=== PATIENT | female | born 1980 | race Caucasian/White ===

== ENCOUNTER 2023-04-15 08:30 | Outpatient (OUT) | payer BC, SELFPAY ==
--- NOTE | 2023-04-15 08:32 | MM_ITS ---
Patient Name: SHAR SMITH MR#: [id number] : 1980 Exam Date: 04/15/2023 Ordering Doctor: DR Robert Llanos D.O. RADIOLOGY REPORT PROCEDURE: MM TOMOSYNTHESIS SCREENING BI COMPARISON: MG MAMM SCREEN 3D DIRK CAD, 08/18/2020. MG MAMM SCREEN DIRK W CAD, 06/09/2019. INDICATIONS: Screening Calculator Name NCI Breast Cancer Risk Assessment Tool 5 Year Breast Cancer Risk 1.40% Lifetime Breast Cancer Risk 19.10% Personal Breast Cancer No Personal Ovarian Cancer No Treatments None Family Cancers Mother with breast cancer at age 65. LOCATION: [facility] BREAST COMPOSITION: Heterogeneously dense,which may obscure small masses. FINDINGS: DIAGNOSTIC CATEGORY 1--NEGATIVE. NO CHANGE FROM COMPARISON ASSESSMENT. RIGHT BREAST: No significant suspicious finding. LEFT BREAST: No significant suspicious finding. RECOMMENDATIONS: ROUTINE MAMMOGRAM AND CLINICAL EVALUATION IN 12 MONTHS. PLEASE NOTE: A NORMAL MAMMOGRAM DOES NOT EXCLUDE THE POSSIBILITY OF BREAST CANCER. A CLINICALLY SUSPICIOUS PALPABLE LUMP SHOULD BE BIOPSIED. Dictated by: Chano Michel MD on 04/15/2023 at 10:09 Approved by: Chano Michel MD on 04/15/2023 at 10:14
[2023-04-15 09:24] LABS: Basophils Percent Auto 0.7 % (0.2-2.0); Eosinophils Absolute Auto 0.1 10^3/uL (0.0-0.7); Eosinophils Percent Auto 2.2 % (0.9-7.0); Hematocrit 39.2 % (36.0-48.0); Hemoglobin 12.9 g/dL (12.0-16.0); Immature Granulocytes Abs Auto 0.01 10^3/uL (0.00-0.03); Immature Granulocytes Pct Auto 0.2 % (0.0-0.5); Lymphocytes Absolute Auto 2.5 10^3/uL (1.2-3.8); Lymphocytes Percent Auto 43.5 % (20.5-60.0); Mean Corpuscular HGB Conc 32.9 g/dL (29.9-35.2); Mean Corpuscular Hemoglobin 29.3 pg (26.7-34.0); Mean Corpuscular Volume 89.1 fL (81.0-99.0); Mean Platelet Volume 9.2 fL (9.5-13.5); Monocytes Absolute Auto 0.3 10^3/uL (0.3-0.8); Monocytes Percent Auto 5.5 % (1.7-12.0); Neutrophils Absolute Auto 2.8 10^3/uL (1.4-6.5); Neutrophils Percent Auto 47.9 % (43.0-75.0); Platelet Count 320 10^3/uL (150-450); Red Cell Distribution Width 12.4 % (11.0-15.0); White Blood Count 5.8 10^3/uL (4.0-11.0)
[2023-04-15 10:32] LABS: Alanine Aminotransferase 28 U/L (14-59); Albumin Level 3.9 g/dL (3.4-5.0); Alkaline Phosphatase 113 U/L (46-116); Anion Gap 12.2; Aspartate Amino Transferase 17 U/L (15-37); BUN Creatinine Ratio 15.2; Bilirubin Total 0.6 mg/dL (0.2-1.0); Carbon Dioxide 27.4 mmol/L (21.0-32.0); Chloride 104 mmol/L (98-107); Chol HDL Ratio 3.3; Cholesterol 170 mg/dL (<=200); Estimated GFR (African America >60 (>=60); Estimated GFR (Non-African Ame >60 (>=60); Globulin 3.8 g/dL; Glucose 98 mg/dL (74-106); HDL Cholesterol 52 mg/dL (40-60); Potassium 3.6 mmol/L (3.5-5.1); Sodium 140 mmol/L (136-145); Thyroid Stimulating Hormone 4.114 uIU/mL (0.358-3.740); Total Protein 7.7 g/dL (6.4-8.2); Triglycerides 95 mg/dL (<=150)
== END 2023-04-15 08:31 | disposition home or self-care (01) ==
LOC: MAMMO 08:30
PROVIDERS: PCP Internal Medicine; Visit Provider Internal Medicine
DX: Z00.00 Encounter for general adult medical examination without abnormal findings (principal); Z12.31 Encounter for screening mammogram for malignant neoplasm of breast; Z80.3 Family history of malignant neoplasm of breast
CPT/HCPCS: 36415; 77063; 77067; 80053; 80061; 84443; 85025

== ENCOUNTER 2023-12-23 09:55 | Outpatient (OUT) | payer BC, SELFPAY ==
--- OUTSIDE RECORDS SUMMARY | 2023-12-23 10:08 | XMS_ITS | CCD ---
Author Organization [facility] Care Team Providers Care Novelty Maker Name Role Phone KATELYN WORKMAN (INBOUND TELEMARKETER) Unavailable Unavailable Nolan West Unavailable MelodieSim joyce Unavailable RUEL JEWELL Admitting Unavailable RUEL JEWELL Attending Unavailable RUEL JEWELL Primary Care Unavailable VIET, DR CONKLIN Admitting Unavailable VIET, DR CONKLIN Attending Unavailable VIET, DR CONKLIN Primary Care Unavailable VIET, DR CONKLIN Consulting Unavailable VIET, DR CONKLIN Admitting Unavailable VIET, DR CONKLIN Attending Unavailable RUEL JEWELL Primary Care Unavailable VIET, DR CONKLIN Consulting Unavailable QUIQUE, DR NADER Woodard Consulting Unavailable VIET, DR CONKLIN Admitting Unavailable VITE, DR CONKLIN Attending Unavailable VIET, DR CONKLIN Primary Care Unavailable Robert Llanos Unavailable Medications Current Medications Medication Drug Class(es) Dates Sig (Normalized) Sig (Original) 24 hr amphetamine aspartate 5 mg / amphetamine sulfate 5 mg / dextroamphetamine saccharate 5 mg / dextroamphetamine sulfate 5 mg extended release oral capsule (7 sources) Central Nervous System Stimulant Start: 06-12-2022 take 1 capsule by mouth every twenty-four hours Adderall XR 20 MG 1 capsule in the morning Orally Once a day for 30 days Jun, Active azithromycin 250 mg oral tablet (3 sources) Macrolide Antimicrobial Start: 07-27-2022 Azithromycin 250 MG as directed Orally daily for 5 days Jul, Active calcium carbonate 1500 mg oral tablet (19 sources) take 1 tablet by mouth every twelve hours Calcium 600 MG 1 tablet with meals Orally Twice a day Active take 1 tablet by mouth every twe lve hours Calcium 600 MG 1 tablet with meals Orally Twice a day Active clobetasol propionate 0.5 mg /ml topical cream (19 sources) Corticosteroid Clobetasol Propi марина 0.05 % 1 application Externally Twice a day Active Clobetasol Propi марина 0.05 % 1 application Externally Twice a day Active dexmethylphenidate hydrochloride 5 mg oral tablet (7 sources) Central Nervous System Stimulant Start: 06-14-2022 take 1 tablet by mouth every twelve hours Focalin 5 MG 1 tablet Orally Twice a day for 30 days Jun, Active estradiol 0.01 mg vaginal insert (19 sources) Estrogen Vagifem 10 MCG 1 tablet Vaginal Two times a Week Active Vagifem 10 MCG 1 tablet Vaginal Two times a Week Active FLUoxetine 10 mg oral capsule (5 sources) Serotonin Reuptake Inhibitor Start: 03-25-2023 take 1 capsule by mouth every twenty-four hours FLUoxetine HCl 10 MG 1 capsule Orally Once a day for 30 days Mar, Active lisdexamfetamine dimesylate 50 mg oral capsule (20 sources) Central Nervous System Stimulant Start: 04-19-2023 take 1 capsule by mouth every twenty-four hours Lisdexamfetamine Dimesylate 50 MG 1 capsule in the morning Orally Once a day for 30 days Apr, Active Start: 04-16-2023 take 1 capsule by [facility] every twenty-four hours Lisdexamfetamine Dimesylate 50 MG 1 capsule in the morning Orally Once a day for 30 days Apr, Active Start: 10-29-2022 take 1 capsule by [facility] every twenty-four hours Vyvanse 50 MG 1 capsule in the morning Orally Once a day for 30 days Feb, Active Start: 08-17-2022 Vyvanse 40 MG 1 capsure Orally Once a day for 30 days Aug, Active Start: 06-11-2022 Vyvanse 40 MG 1 capsure Orally Once a day for 30 days Jun, Active Ondansetron (7 sources) Serotonin-3 Receptor Antagonist Zofran 4 MG PRN Active phenazopyridine hydrochloride 200 mg oral tablet (19 sources) take 1 tablet by mouth every eight hours Pyridium 200 MG 1 tablet after meals Orally Three times a day Active phentermine hydrochloride 37.5 mg oral tablet (9 sources) Sympathomimetic Amine Anorectic take 1 tablet by mouth once daily Phentermine HCl 37.5 MG TAKE 1 TABLET BY MOUTH DAILY Oral for 30 Days Active promethazine hydrochloride 12.5 mg oral tablet (19 sources) Phenothiazine take 1 tablet by mouth every six hours Promethazine HCl 12.5 MG 1 tablet as needed Orally every 6 hrs Active traMADol hydrochloride 50 mg oral tablet (9 sources) Opioid Agonist take 1 tablet by mouth twice daily traMADol HCl 50 MG TAKE 1 TABLET BY MOUTH TWICE A DAY Oral for 30 Days Active traZODone hydrochloride 50 mg oral tablet (9 sources) Serotonin Reuptake Inhibitor take 0.5 tablet by mouth once daily at bedtime traZODone HCl 50 MG TAKE 1/2 TABLET BY MOUTH EVERY DAY AT BEDTIME Oral for 30 Days Active Problems Active Problems Problem Classification Problem Date Documented Date Episodic/Chronic Abdominal pain (20 sources) Abdominal pain; Translations: [Unspecified abdominal pain] Episodic Acute bronchitis (1 source) Acute bronchitis due to other specified organisms Episodic Adjustment disorders (20 sources) Stress; Translations: [Reaction to severe stress, unspecified] Chronic Administrative/socia l admission (10 sources) Counseling requested; Translations: [Persons encountering health services in other specified circumstances] Resolved: 03-08-2017 Episodic Allergic reactions (5 sources) Inflammatory dermatosis; Translations: [Dermatitis, unspecified] Episodic Anxiety disorders (20 sources) Generalized anxiety disorder; Translations: [Generalized anxiety disorder] Chronic Complications of surgical procedures or medical care (5 sources) Symptomatic postprocedural ovarian failure; Translations: [Symptomatic postprocedural ovarian failure] Chronic Contraceptive and procreative management (5 sources) Surveillance of depot contraception done; Translations: [Encounter for surveillance of injectable contraceptive] Episodic Disorders usually diagnosed in infancy, childhood, or adolescence (20 sources) Attention deficit hyperactivity disorder, predominantly inattentive type; Translations: [Other specified behavioral and emotional disorders with onset usually occurring in childhood and adolescence] Chronic Esophageal disorders (5 sources) Gastroesophageal reflux disease without esophagitis; Translations: [Gastro-esophageal reflux disease without esophagitis] Chronic Immunizations and screening for infectious disease (10 sources) Contact with and (suspected) exposure to other viral communicable diseases; Translations: [Vaccination given] Episodic Malaise and fatigue (5 sources) Fatigue; Translations: [Other fatigue] Episodic Menopausal disorders (20 sources) Vaginal dryness; Translations: [Menopausal and female climacteric states] Chronic Menstrual disorders (20 sources) Dysmenorrhea; Translations: [Dysmenorrhea, unspecified] Chronic Miscellaneous mental health disorders (20 sources) Primary insomnia; Translations: [Primary insomnia] Chronic Mood disorders (11 sources) Depression; Translations: [Recurrent major depressive episodes, mild ] Chronic Nausea and vomiting (19 sources) Nausea; Translations: [Nausea] Episodic Other and unspecified benign neoplasm (1 source) Hemangioma of skin and subcutaneous tissue Episodic Other connective tissue disease (5 sources) Enthesopathy; Translations: [Other enthesopathies, not elsewhere classified] Episodic Other diseases of kidney and ureters (5 sources) Disorder of kidney and/or ureter; Translations: [Other specified disorders of kidney and ureter] Chronic Other ear and sense organ disorders (5 sources) Noise effects on inner ear; Translations: [Noise effects on inner ear, bilateral] Episodic Other female genital disorders (5 sources) Premenstrual tension syndrome; Translations: [Premenstrual tension syndrome] Chronic Other female genital disorders (5 sources) Disorder of female genital system; Translations: [Personal history of other diseases of the female genital tract] Episodic Other nutritional; endocrine; and metabolic disorders (12 sources) Body mass index 30+ - obesity; Translations: [Body mass index (BMI) 30.0-30.9, adult] Chronic Other nutritional; endocrine; and metabolic disorders (12 sources) Obesity; Translations: [Other obesity due to excess calories] Chronic Other nutritional; endocrine; and metabolic disorders (1 source) Other obesity due to excess calories Chronic Other nutritional; endocrine; and metabolic disorders (1 source) Body mass index (BMI) 30.0-30.9, adult Chronic Other nutritional; endocrine; and metabolic disorders (10 sources) Body mass index 25-29 - overweight; Translations: [Body mass index (BMI) 27.0-27.9, adult] Resolved: 04-18-2021 Episodic Other nutritional; endocrine; and metabolic disorders (5 sources) Abnormal weight gain; Translations: [Abnormal weight gain] Episodic Other nutritional; endocrine; and metabolic disorders (5 sources) Overweight; Translations: [Overweight] Episodic Other nutritional; endocrine; and metabolic disorders (5 sources) Other symptoms and signs concerning food and fluid intake; Translations: [Nutritional status: food and fluid intake] Episodic Other nutritional; endocrine; and metabolic disorders (1 source) Overweight Episodic Other screening for suspected conditions (not mental disorders or infectious disease) (1 source) Encounter for screening mammogram for malignant neoplasm of breast Episodic Other skin disorders (1 source) Other seborrheic keratosis Episodic Other skin disorders (5 sources) Generalized hyperhidrosis; Translations: [Generalized hyperhidrosis] Episodic Other skin disorders (5 sources) Hypertrophic condition of skin; Translations: [Other hypertrophic disorders of the skin] Episodic Other skin disorders (5 sources) Eruption; Translations: [Rash and other nonspecific skin eruption] Episodic Other upper respiratory infections (16 sources) Acute pharyngitis, unspecified; Translations: [Acute sinusitis] Episodic Ovarian cyst (5 sources) Cyst of right ovary; Translations: [Unspecified ovarian cyst, right side] Episodic Residual codes; unclassified (5 sources) Reduced libido; Translations: [Decreased libido] Episodic Residual codes; unclassified (5 sources) Symptom: generalized; Translations: [Other general symptoms and signs] Episodic Spondylosis; intervertebral disc disorders; other back problems (20 sources) Degeneration of lumbosacral intervertebral disc; Translations: [Other intervertebral disc degeneration, lumbosacral region] Onset: 08-04-2021 Resolved: 08-23-2021 Chronic Spondylosis; intervertebral disc disorders; other back problems (20 sources) Lumbago with sciatica; Translations: [Lumbago with sciatica, unspecified side] Episodic Unclassified (3 sources) LOW BACK PAIN, UNSPECIFIED; Translations: [LOW BACK PAIN, UNSPECIFIED] Onset: 07-31-2021 Urinary tract infections (20 sources) Urethral syndrome; Translations: [Urethral syndrome, unspecified] Episodic Viral infection (20 sources) Verruca vulgaris; Translations: [Viral wart, unspecified] Episodic Past or Other Problems Problem Classification Problem Date Documented Date Episodic/Chronic Genitourinary symptoms and ill-defined conditions (5 sources) Genitourinary symptoms; Translations: [Unspecified symptoms and signs involving the genitourinary system] Resolved: 04-18-2021 Episodic Headache; including migraine (5 sources) Tension-type headache; Translations: [Tension-type headache, unspecified, intractable] Resolved: 03-08-2017 Episodic Intestinal infection (5 sources) Viral infection of the digestive tract; Translations: [Viral intestinal infection, unspecified] Resolved: 04-18-2021 Episodic Other aftercare (5 sources) History and physical examination, follow-up; Translations: [Encounter for follow-up examination after completed treatment for conditions other than malignant neoplasm] Resolved: 03-08-2017 Episodic Other nutritional; endocrine; and metabolic disorders (5 sources) Excessive eating - polyphagia; Translations: [Polyphagia] Resolved: 04-18-2021 Episodic Residual codes; unclassified (4 sources) Insomnia, unspecified; Translations: [INSOMNIA UNSPECIFIED] Onset: 04-03-2021 Episodic Unclassified (1 source) LOW BACK PAIN, UNSPECIFIED; Translations: [LOW BACK PAIN, UNSPECIFIED] Onset: 07-26-2021 Results Test Name Value Interpretation Reference Range Facility CBC AUTO DIFFon 03-13-2022 BASO # 0.1 103/ul Normal 0.0-0.1 [facility] Comment on above: Performed By: #### C BC #### [facility] [address] [place] [address] Dr. Jad Sharma Basophils/100 WBC (Bld) 0.9 % Normal 0.2-2.0 [facility] Comment on above: Performed By: #### C BC #### [facility] [address] [place] [address] Dr. Jad Sharma EO # 0.1 103/ul Normal 0.0-0.7 [facility] Comment on above: Performed By: #### C BC #### [facility] [address] [place] [address] Dr. Jad Sharma Eosinophils/100 WBC (Bld) 1.9 % Normal 0.9-7.0 [facility] Comment on above: Performed By: #### C BC #### [facility] [address] [place] [address] Dr. Jad Sharma Erythrocyte distribution width (RBC) [Ratio] 12.5 % Normal 11.0-15.0 [facility] Comment on above: Performed By: #### C BC #### [facility] [address] [place] [address] Dr. Jad Sharma Hematocrit (Bld) [Volume fraction] 38.1 % Normal 36.0-48.0 [facility] Comment on above: Performed By: #### C BC #### [facility] [address] [place] [address] Dr. Jad Sharma Hemoglobin (Bld) [Mass/Vol] 13.0 g/dL Normal 12.0-16.0 [facility] Comment on above: Performed By: #### C BC #### [facility] [address] [place] [address] Dr. Jad Sharma IG # 0.01 10e3/ul Normal 0.00-0.03 [facility] Comment on above: Performed By: #### C BC #### [facility] [address] [place] [address] Dr. Jad Sharma IG % 0.2 % Normal 0.0-0.5 [facility] Comment on above: Performed By: #### C BC #### [facility] [address] [place] [address] Dr. Jad Sharma LYMPH # 2.0 103/ul Normal 1.2-3.8 [facility] Comment on above: Performed By: #### C BC #### [facility] [address] [place] [address] Dr. Jad Sharma Lymphocytes/100 WBC (Bld) 33.6 % Normal 20.5-60.0 [facility] Comment on above: Performed By: #### C BC #### [facility] [address] [place] [address] Dr. Jad Sharma MANUAL DIFF REQ NO Normal [facility] Comment on above: Performed By: #### C BC #### [facility] [address] [place] [address] Dr. Jad Sharma MCH (RBC) [Entitic mass] 29.3 pg Normal 26.7-34.0 [facility] Comment on above: Performed By: #### C BC #### [facility] [address] [place] [address] Dr. Jad Sharma MCHC (RBC) [Mass/Vol] 34.1 g/dL Normal 29.9-35.2 [facility] Comment on above: Performed By: #### C BC #### [facility] [address] [place] [address] Dr. Jad Sharma MCV (RBC) [Entitic vol] 85.8 fL Normal 81.0-99.0 [facility] Comment on above: Performed By: #### C BC #### [facility] [address] [place] [address] Dr. Jda Sharma MONO # 0.3 103/ul Normal 0.3-0.8 [facility] Comment on above: Performed By: #### C BC #### [facility] [address] [place] [address] Dr. Jad Sharma Monocytes/100 WBC (Bld) 5.8 % Normal 1.7-12.0 [facility] Comment on above: Performed By: #### C BC #### [facility] [address] [place] [address] Dr. Jad Sharma NEUT # 3.4 103/ul Normal 1.4-6.5 [facility] Comment on above: Performed By: #### C BC #### [facility] [address] [place] [address] Dr. Jad Sharma Neutrophils/100 WBC (Bld) 57.6 % Normal 43.0-75.0 [facility] Comment on above: Performed By: #### C BC #### [facility] [address] [place] [address] Dr. Jad Sharma Platelet mean volume (Bld) [Entitic vol] 9.0 fL Critically low 9.5-13.5 [facility] Comment on above: Performed By: #### C BC #### [facility] [address] [place] [address] Dr. Jad Sharma PLT 308 103/ul Normal 150-450 [facility] Comment on above: Performed By: #### C BC #### [facility] [address] [place] [address] Dr. Jad Sharma RBC 4.44 106/ul Normal 4.20-5.40 [facility] Comment on above: Performed By: #### C BC #### [facility] [address] [place] [address] Dr. Jad Sharma WBC 5.8 103/ul Normal 4.0-11.0 [facility] Comment on above: Performed By: #### C BC #### [facility] [address] [place] [address] Dr. Jad Sharma GLYCOHEMOGLOBIN A1Con 2021 ADA RECOMMENDATION SEE BELOW Normal [facility] Comment on above: Result Comment: ADA RECOMMENDED LIMIT 4.0 - 6.0 ADA THERAPEUTIC TARGET < 7.0 ACTION SUGGESTED > 7.0 Performed By: #### A 1C #### [facility] [address] [place] [address] Dr. Jad Sharma Glucose [Mass/Vol] 105 mg/dL Normal [facility] Comment on above: Performed By: #### A 1C #### [facility] [address] [place] [address] Dr. Jad Sharma HbA1c (Bld) [Mass fraction] 5.3 % Normal 4.5-6.2 [facility] Comment on above: Performed By: #### A 1C #### [facility] [address] [place] [address] Dr. Jad Sharma LIPID PROFILEon 03-13-2022 CHOL-HDL RATIO NORM SEE BELOW Normal [facility] Comment on above: Result Comment: 3.3 - 4.4 LOW RISK 4.4 - 7.1 AVERAGE RISK 7.1 - 11.0 MODERATE RISK >11.0 HIGH RISK Performed By: #### T MAGUE, LIPID, CMP #### [facility] [address] [place] [address] Dr. Jad Sharma Cholesterol [Mass/Vol] 178 mg/dL Normal <=200 [facility] Comment on above: Performed By: #### T SH, LIPID, CMP #### [facility] [address] [place] [address] Dr. Jad Sharma Cholesterol in HDL [Mass/Vol] 55 mg/dL Normal 40-60 [facility] Comment on above: Performed By: #### T SH, LIPID, CMP #### [facility] [address] [place] [address] Dr. Jad Sharma Cholesterol in LDL [Mass/Vol] 97.4 mg/dL Normal [facility] Comment on above: Performed By: #### T SH, LIPID, CMP #### [facility] [address] [address] [address] Jad Sharma Cholesterol.total/C holesterol in HDL [Mass ratio] 3.2 {ratio} Normal [facility] Comment on above: Performed By: #### T MAGUE, LIPID, CMP #### [facility] [address] [address] [address] Jad Sharma HDL NORMAL > or = 60 mg/dl - LO W CARDIOVASCULAR RISK <40 mg/dl - HIGH CARDIOVASCULAR RISK Normal [facility] Comment on above: Performed By: #### T MAGUE, LIPID, CMP #### [facility] [address] [place] [address] Dr. Jad Sharma LDL CALC NORMAL SEE BELOW Normal [facility] Comment on above: Result Comment: <100 mg/dl OPTIMAL 100 - 129 mg/dl NEAR OR ABOVE OPTIMAL 130 - 159 mg/dl BORDERLINE HIGH 160 - 189 mg/dl HIGH >190 mg/dl VERY HIGH Performed By: #### T MAGUE, LIPID, CMP #### [facility] [address] [place] [address] Dr. Jad Sharma Triglyceride [Mass/Vol] 128 mg/dL Normal <=150 [facility] Comment on above: Performed By: #### T MAGUE, LIPID, CMP #### [facility] [address] [place] [address] Dr. Jad Sharma VLDL CALC 25.6 mg/dL Normal [facility] Comment on above: Performed By: #### T MAGUE, LIPID, CMP #### [facility] [address] [place] [address] Dr. Jad Sharma PROF 14(COMP METB)on 022 Albumin [Mass/Vol] 4.2 g/dL Normal 3.4-5.0 [facility] Comment on above: Performed By: #### T MAGUE, LIPID, CMP #### [facility] [address] [place] [address] Dr. Jad Sharma Albumin/Globulin [Mass ratio] 1.2 {ratio} Normal [facility] Comment on above: Performed By: #### T MAGUE, LIPID, CMP #### [facility] [address] [address] [address] Jad Sharma ALP [Catalytic activity/Vol] 122 U/L Critically high 46-116 [facility] Comment on above: Performed By: #### T SH, LIPID, CMP #### [facility] [address] [address] [address] Jad Sharma ALT [Catalytic activity/Vol] 18 U/L Normal 14-59 [facility] Comment on above: Performed By: #### T SH, LIPID, CMP #### [facility] [address] [address] [address] Jad Sharma Anion gap [Moles/Vol] 8.3 mmol/L Normal [facility] Comment on above: Performed By: #### T MAGUE, LIPID, CMP #### [facility] [address] [place] [address] Dr. Jad Sharma AST [Catalytic activity/Vol] 9 U/L Critically low 15-37 [facility] Comment on above: Performed By: #### T MAGUE, LIPID, CMP #### [facility] [address] [address] [address] Jad Sharma Bilirubin [Mass/Vol] 0.4 mg/dL Normal 0.2-1.0 [facility] Comment on above: Performed By: #### T MAGUE, LIPID, CMP #### [facility] [address] [address] [address] Jad Sharma Calcium [Mass/Vol] 9.5 mg/dL Normal 8.5-10.1 [facility] Comment on above: Performed By: #### T SH, LIPID, CMP #### [facility] [address] [address] [address] Jad Sharma Chloride [Moles/Vol] 105 mmol/L Normal 98-107 [facility] Comment on above: Performed By: #### T SH, LIPID, CMP #### [facility] [address] [address] [address] Jad Sharma CO2 [Moles/Vol] 29.9 mmol/L Normal 21.0-32.0 [facility] Comment on above: Performed By: #### T SH, LIPID, CMP #### [facility] [address] [address] [address] Jad Sharma Creatinine [Mass/Vol] 0.74 mg/dL Normal 0.55-1.02 [facility] Comment on above: Performed By: #### T SH, LIPID, CMP #### [facility] [address] [address] [address] Jad Sharma EGFR-AF [place]ER >60 Normal >=60 [facility] Comment on above: Performed By: #### T SH, LIPID, CMP #### [facility] [address] [address] [address] Jad Sharma EGFR-NON AF [place] >60 Normal >=60 [facility] [facility] Comment on above: Performed By: #### T SH, LIPID, CMP #### [facility] [address] [address] [address] Jad Sharma Globulin (S) [Mass/Vol] 3.6 g/dL Normal [facility] Comment on above: Performed By: #### T SH, LIPID, CMP #### [facility] [address] [address] [address] Jad Sharma Glucose [Mass/Vol] 87 mg/dL Normal 74-106 [facility] Comment on above: Performed By: #### T SH, LIPID, CMP #### [facility] [address] [address] [address] Jad Sharma Potassium [Moles/Vol] 4.2 mmol/L Normal 3.5-5.1 [facility] Comment on above: Performed By: #### T SH, LIPID, CMP #### [facility] [address] [address] [address] Jad Sharma Protein [Mass/Vol] 7.8 g/dL Normal 6.4-8.2 [facility] Comment on above: Performed By: #### T SH, LIPID, CMP #### [facility] [address] [address] [address] Jad Sharma Sodium [Moles/Vol] 139 mmol/L Normal 136-145 [facility] Comment on above: Performed By: #### T SH, LIPID, CMP #### [facility] [address] [address] [address] Jad Sharma Urea nitrogen [Mass/Vol] 11.0 mg/dL Normal 7.0-18.0 [facility] Comment on above: Performed By: #### T SH, LIPID, CMP #### [facility] [address] [address] [address] Jad Sharma Urea nitrogen/Creatinine [Mass ratio] 14.9 mg/mg Normal [facility] Comment on above: Performed By: #### T SH, LIPID, CMP #### [facility] [address] [address] [address] Jad Sharma TSHon 03-13-2022 TSH 2.619 uIU/mL Normal 0.358-3.740 [facility] Comment on above: Performed By: #### T SH, LIPID, CMP #### [facility] [address] [address] [address] Jad Sharma MRI LSPINE WO CONon 07-27-19 MRI LSPINE WO CON EXAMINATION: MRI LSP INE WO CON HISTORY: Low back pain ; acute low back and left leg pain COMPARISON: No relevant comparison available. TECHNIQUE: A variety of imaging planes and parameters were utilized for visualization of suspected pathology. FINDINGS: For the purposes of numbering, sagittal T2 image # 7 extends from the T11 vertebral body superiorly to the S3 level inferiorly. PARASPINAL AREA: Normal with no visible mass. BONES: No fracture, pars defect, or osseous lesion. CORD/CAUDA EQUINA: Normal caliber, contour, and signal intensity. DISC LEVELS: 12-L1: No significant disc/facet abnormality, spinal stenosis, or foraminal stenosis. L1-L2: No significant disc/facet abnormality, spinal stenosis, or foraminal stenosis. L2-L3: No significant disc/facet abnormality, spinal stenosis, or foraminal stenosis. L3-L4: No significant disc/facet abnormality, spinal stenosis, or foraminal stenosis. L4-L5: Left paracentral disc extrusion protruding 6 mm into the central canal and extending inferiorly nearly one half of the vertebral body height. This compresses the descending left L5 nerve root. Disc desiccation without significant disc height reduction. L5-S1: Broad-based disc bulging eccentric to the left versus large broad-based protrusion, which causes mild narrowing of the left neural foramen and displaces versus compresses the descending left S1 nerve root. Disc desiccation and mild disc height reduction. No significant facet arthropathy. IMPRESSION: 1. L4-5 left paracentral disc extrusion compressing the descending L5 nerve root and likely accounting for patient's symptoms. 2. L5-S1 broad-based disc bulging narrowing the left neural foramen and displacing versus mildly compressing the descending left S1 nerve root. Electronically authenticated by: NADER LEI Date: 2021-07-26 10:30 Normal [facility] CNOVon 03-28-2018 CNOV Office Visit (AMDERM) SHAR SMITH ([id number]) 1980 FDate Time Provider [id number]/23/18 10:20 AM KATELYN WORKMAN (SUKHJINDER) AMDERM During your visit today, we recorded the following information about you:Katelyn Workman APRN.CNP 03/28/2018 10:07 AM SignedSKIN EXAM NEWCC: This patient is a 37 year old female. Patient presents with:New PatientEczemaHPI:Location : right handAppearance (size, shape, color): dry, scaly, started with little blisters, redDuration:14 yearsSymptoms (growing, itching, bleeding, tender): itching, scaling, peeling,cracks at timesTreatments: bobbi jon currentlyHas tried samples of Eucrisa and Hydrocortisone from another office that didnot workNo seasonal allergies or asthma-Personal history of skin cancer: No-History of blistering sunburns:No-Family history of skin cancer: NoSOC: Social History Marital status: Spouse name: Years of education: Number of children:Social History Main Topics Drug use: UnknownMEDS:Current outpatient prescriptions:No current outpatient prescriptions on file prior to visit.No current facility-administered medications on file prior to visit.ALLERGY: ALLERGIESNo Known AllergiesPAST MEDICAL HISTORY: No chronic skin disease or skin cancerFAMILY HISTORY: No chronic skin disease or skin cancerREVIEW OF SYSTEMS: Patient feels well and denies any recent fevers, chills, ornightsweats.PHYSICAL EXAM: The patient is a pleasant female in no distress. Patient ishealthy, well developed, well nourished and in otherwise good health. she isalert and oriented x 3. [facility] Type: IIIMPRESSION:Palm of right hand with erythematous scaling plaquesA/P:(L30.1) Dyshidrotic eczema (primary encounter diagnosis)Comment: Discussed etiology and educated. Discussed chronic nature.Plan: Recommend clobetasol (TEMOVATE) 0.05 % cream twice daily as needed.Side effects of steroids discussed including proper use and location, atrophy,telangectasia, striae, hypo- or hyperpigmenation.Advised to avoid irritants.Encouraged generous use of emollients.Can consider vaseline and white cotton gloves at bedtime.Follow up in 1 year and PRFrancine Workman CNPAttending: Dr. MedelThe documentation for this note was completed by Bia Dexter Ma acting asscribe for Katelyn Workman APRN.CNP. March 28, 2018 9:53 AM.I agree with the Chief Complaint, ROS, and Past Histories independentlygathered by the clinical customer support executive and the remaining scribed noteaccurately describes my personal service to the patient.Referring Provider: SELF [[id number]]Allergies As of Date: 03/28/2018(No Known Allergies)Date Reviewed: 03/28/2018Reviewed by: Katelyn Workman - Fully AssessedReason for Visit: New Patient [172] Eczema [925]Primary Visit Diagnosis:Dyshidrotic eczema [L30.1]Order(s):clobetaso l (TEMOVATE) 0.05 % creamApply 1 application to affected area twice daily.Disp: 45 gRfl: 6Prescriptions as of 03/28/2018 Sig: CLOBETASOL 0.05 % TOPICAL CRE* Apply 1 application to affect*Problem List As Of Date: 03/28/2018(None)Prescript ions ordered this encounter Disp Refills Start End CLOBETASOL 0.05 % TOPICAL CREAM 45 g 6 03/28/2018 Route: TOPICAL Sig: Apply 1 application to affected area twice daily. Status:Closed by KATELYN WORKMAN CNP on 03/28/18 Normal [facility] PROGRESSon 03-28-2018 Protein mass conc HNO ID: [id number] thor: Katelyn (Sukhjinder) PayneService: (none)Author Type: Nurse PractitionerType: Progress NotesFiled: 03/28/2018 10:07 AMNote Text:SKIN EXAM NEWCC: This patient is a 37 year old female. Patient presents with:New PatientEczemaHPI:Location : right handAppearance (size, shape, color): dry, scaly, started with little blisters,redDuration:14 yearsSymptoms (growing, itching, bleeding, tender): itching, scaling, peeling,cracks at timesTreatments: bobbi jon currentlyHas tried samples of Eucrisa and Hydrocortisone from another office thatdid not workNo seasonal allergies or asthma-Personal history of skin cancer: No-History of blistering sunburns:No-Family history of skin cancer: NoSOC: Social History Marital status: Spouse name: Years of education: Number of children:Social History Main Topics Drug use: UnknownMEDS:Current outpatient prescriptions:No current outpatient prescriptions on file prior to visit.No current facility-administered medications on file prior to visit.ALLERGY: ALLERGIESNo Known AllergiesPAST MEDICAL HISTORY: No chronic skin disease or skin cancerFAMILY HISTORY: No chronic skin disease or skin cancerREVIEW OF SYSTEMS: Patient feels well and denies any recent fevers,chills, or nightsweats.PHYSICAL EXAM: The patient is a pleasant female in no distress. Patientis healthy, well developed, well nourished and in otherwise good health.she is alert and oriented x 3. [facility] Type: IIIMPRESSION:Palm of right hand with erythematous scaling plaquesA/P:(L30.1) Dyshidrotic eczema (primary encounter diagnosis)Comment: Discussed etiology and educated. Discussed chronic nature.Plan: Recommend clobetasol (TEMOVATE) 0.05 % cream twice daily as needed.Side effects of steroids discussed including proper use and location,atrophy, telangectasia, striae, hypo- or hyperpigmenation.Advised to avoid irritants.Encouraged generous use of emollients.Can consider vaseline and white cotton gloves at bedtime.Follow up in 1 year and Raj Workman CNPAttending: Dr. MedelThe documentation for this note was completed by Bia Dexter Ma acting asscribe for Katelyn Workman APRN.CNP. March 28, 2018 9:53 AM.I agree with the Chief Complaint, ROS, and Past Histories independentlygathered by the clinical customer support executive and the remaining scribed noteaccurately describes my personal service to the patient. Normal [facility] Vital Signs Date Time Vital Sign Value Performing Clinician Facility 03-25-2023 15:15-0500 Body height 167.64 cm Booker Other [facility] Other 03-25-2023 15:15-0500 Body mass index (BMI) [Ratio] 29.89 kg/m2 Booker Other [facility] Other 03-25-2023 15:15-0500 Body weight 84.01 kg Booker Other [facility] Other 03-25-2023 15:15-0500 Diastolic blood pressure 85 mm[Hg] Booker Other [facility] Other 03-25-2023 15:15-0500 Respiratory rate 12 /min Booker Other [facility] Other 03-25-2023 15:15-0500 Systolic blood pressure 126 mm[Hg] Booker Other [facility] Other 09-28-2022 15:30-0400 Body height 167.64 cm Booker Other [facility] Other 09-28-2022 15:30-0400 Body mass index (BMI) [Ratio] 30.86 kg/m2 Robert Ball Other [facility] Other 09-28-2022 15:30-0400 Body weight 86.73 kg Robert Ball Other [facility] Other 09-28-2022 15:30-0400 Diastolic blood pressure 89 mm[Hg] Robert Ball Other [facility] Other 09-28-2022 15:30-0400 Respiratory rate 12 /min Robert Ball Other [facility] Other 09-28-2022 15:30-0400 Systolic blood pressure 126 mm[Hg] Roebrt Ball Other [facility] Other 05-18-2022 14:30-0500 Body height 167.64 cm Robert Ball Other [facility] Other 05-18-2022 14:30-0500 Body mass index (BMI) [Ratio] 30.73 kg/m2 Robert Ball Other [facility] Other 05-18-2022 14:30-0500 Body weight 86.37 kg Robert Ball Other [facility] Other 05-18-2022 14:30-0500 Diastolic blood pressure 82 mm[Hg] Robert Ball Other [facility] Other 05-18-2022 14:30-0500 Respiratory rate 12 /min Robert Ball Other [facility] Other 05-18-2022 14:30-0500 Systolic blood pressure 122 mm[Hg] Robert Ball Other [facility] Other 08-23-2021 14:00-0400 Body height 167.64 cm Nolan West Other [facility] Other 08-23-2021 14:00-0400 Body mass index (BMI) [Ratio] 22.76 kg/m2 Nolan West Other [facility] Other 08-23-2021 14:00-0400 Body weight 63.96 kg Nolan West Other [facility] Other Encounters Encounter Date Encounter Type Care Provider Facility Start: 04-19-2023 End: 04-19-2023 ambulatory Robert Ball Other [facility] Other Start: 04-19-2023 Telephone encounter Robert Ball [facility] Start: 04-16-2023 End: 04-16-2023 ambulatory Robert Ball Other [facility] Other Start: 04-16-2023 Telephone encounter Robert Ball [facility] Start: 03-25-2023 End: 03-25-2023 ambulatory Robert Ball Other [facility] Other Start: 03-25-2023 Office outpatient vi sit 15 minutes Robert Ball [facility] Start: 02-08-2023 End: 02-08-2023 ambulatory Robert Ball Other [facility] Other Start: 02-08-2023 Telephone encounter Robert Ball [facility] Start: 01-09-2023 End: 01-09-2023 ambulatory Robert Ball Other [facility] Other Start: 01-09-2023 Telephone encounter Robert Ball [facility] Start: 12-20-2022 End: 12-20-2022 ambulatory Robert Ball Other [facility] Other Start: 12-20-2022 Telephone encounter Robert Ball [facility] Start: 12-06-2022 End: 12-06-2022 ambulatory Robert Ball Other [facility] Other Start: 12-06-2022 Telephone encounter Robert Ball [facility] Start: 11-16-2022 End: 11-16-2022 ambulatory Robert Ball Other [facility] Other Start: 11-16-2022 Telephone encounter Robert Ball [facility] Start: 10-29-2022 End: 10-29-2022 ambulatory Robert Ball Other [facility] Other Start: 10-29-2022 Telephone encounter Robert Ball [facility] Start: 09-28-2022 End: 09-28-2022 ambulatory Robert Ball Other [facility] Other Start: 09-28-2022 Encounter for genera l adult medical examination without abnormal findings Robert Ball [facility] Start: 09-28-2022 Periodic preventive med est patient 40-64yrs Robert Llanos [facility] Start: 08-16-2022 End: 08-16-2022 ambulatory Robert Ball Other [facility] Other Start: 08-16-2022 Telephone encounter Robert Ball [facility] Start: 07-30-2022 End: 07-30-2022 ambulatory Robert Ball Other [facility] Other Start: 07-30-2022 Telephone encounter Robert Ball [facility] Start: 07-27-2022 End: 07-27-2022 ambulatory Robert Ball Other [facility] Other Start: 07-27-2022 Office outpatient vi sit 15 minutes Robert Ball [facility] Start: 06-14-2022 End: 06-14-2022 ambulatory Robert Llanos Other [facility] Other Start: 06-14-2022 Telephone encounter Robert Llanos [facility] Start: 06-12-2022 End: 06-12-2022 ambulatory Robert Llanos Other [facility] Other Start: 06-12-2022 Telephone encounter Robert Llanos [facility] Start: 06-11-2022 End: 06-11-2022 ambulatory Robert Llanos Other [facility] Other Start: 06-11-2022 Telephone encounter Robert Llanos [facility] Start: 05-18-2022 End: 05-18-2022 ambulatory Robert Llanos Other [facility] Other Start: 05-18-2022 Office outpatient vi sit 15 minutes Robert Llanos [facility] Start: 03-17-2022 Encounter for genera l adult medical examination without abnormal findings DR ROBERT LLANOS [facility] Start: 03-13-2022 End: 03-14-[address] ROBERT LLANOS Facility:[facility] Start: 03-13-2022 End: 03-14-2022 Encounter for general adult medical examination without abnormal findings DR ROBERT LLANOS Facility:[facility] Start: 03-12-2022 Adult health examination Andres ofelia Llanos Other [facility] Other Start: 09-06-2021 End: 09-06-2021 ambulatory Sim Sewell Other [facility] Other Start: 09-06-2021 Telephone encounter Sim Sewell [facility] Start: 08-23-2021 End: 08-23-2021 ambulatory Nolan West Other [facility] Other Start: 08-23-2021 Office outpatient ne w 30 minutes Nolan West [facility] Start: 08-04-2021 End: 09-13-[address] ROBERT LLANOS Facility:[facility] Start: 07-26-2021 End: 07-27-[address] ROBERT LLANOS Facility:[facility] Start: 04-03-2021 End: 04-04-2021 ambulatory RUEL JEWELL Facility:[facility] Start: 01-03-2021 Gynecological examin ation normal Robert Llanos Other [facility] Other Start: 03-28-2018 End: 03-31-2018 Patient encounter procedure KATELYN (INBOUND TELEMARKETER) JI [facility] Start: 03-08-2017 End: 03-08-2017 Pre-procedure evaluation check Robert Llanos Other [facility] Other Procedures Date Procedure Procedure Detail Performing Clinician Start: 06-04-2008 visit Kendell Llanos Other Screening for malign ant neoplasm of breast Robert Llanos Other Immunizations Immunization Date Immunization Notes Care Provider Fa cility 03-14-2021 COVID-19 Vaccine Pfi zer - Documentation Purposes Only Robert Llanos Other [facility] Other 02-17-2020 influenza virus vaccine, split virus (incl. purified surface antigen) Robert Llanos Other [facility] Other Payers Date Payer Category Payer Unknown [id number] 1980 Unknown [id number] .[id number] 1980 Unknown [id number] 1980 Unknown [id number] .[id number] 1980 Unknown [id number] .16.84 [id number] Blue Cross Blue Shield [facility] [id number] Social History Date Type Detail Facility Sex Assigned At [facility] Other Clinical Notes 04-03-2021 to 04-19-2023 Note Date & Type Note Facility 04-19-2023 Evaluation note Encounter Date Diagnosis Assessment Notes Apr, ADD (attention deficit disorder) without hyperactivity (ICD-10 - F98.8) [facility] Other 12-12-2023 Evaluation note* Encounter Date Diagnosis Assessment Notes Treatment Notes Treatment Clinical Notes Apr, ADD (attention deficit disorder) without hyperactivity (ICD-10 - F98.8) [facility] Other 11-20-2023 Evaluation note* Encounter Date Diagnosis Assessment Notes Treatment Notes Treatment Clinical Notes Mar, ADD (attention deficit disorder) without hyperactivity (ICD-10 - F98.8) Mar, Degeneration of intervertebral disc of lumbosacral region (ICD-10 - M51.37) MRI: 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 They are to use intermittent heat and ice as needed. They may schedule a massage or gentle manipulation. They may safely use Tylenol as needed. Mar, Mild episode of recurrent major depressive disorder (ICD-10 - F33.0) Healthy diet, exercise and keep active. Counseling may be beneficial. Initiate low dose Prozac Mar, Overweight (ICD-10 - E66.3) This patient has been instructed on a low-fat, high-fiber diet. They are instructed to reduce calories, portion sizes and snacks. It is recommended that they exercise for 30 minutes, 3-5 times weekly. Mar, Hemangioma of skin (ICD-10 - D18.01) Reassured, not cancerous, no obvious cause other than age. [facility] Other 10-06-2023 Evaluation note* Encounter Date Diagnosis Assessment Notes Treatment Notes Treatment Clinical Notes Feb, ADD (attention deficit disorder) without hyperactivity (ICD-10 - F98.8) [facility] Other 09-06-2023 Evaluation note* Encounter Date Diagnosis Assessment Notes Treatment Notes Treatment Clinical Notes Jan, ADD (attention deficit disorder) without hyperactivity (ICD-10 - F98.8) [facility] Other 08-17-2023 Evaluation note* Encounter Date Diagnosis Assessment Notes Treatment Notes Treatment Clinical Notes Dec, ADD (attention deficit disorder) without hyperactivity (ICD-10 - F98.8) [facility] Other 08-03-2023 Evaluation note* Encounter Date Diagnosis Assessment Notes Treatment Notes Treatment Clinical Notes Dec, ADD (attention deficit disorder) without hyperactivity (ICD-10 - F98.8) [facility] Other 07-14-2023 Evaluation note* Encounter Date Diagnosis Assessment Notes Treatment Notes Treatment Clinical Notes Nov, ADD (attention deficit disorder) without hyperactivity (ICD-10 - F98.8) [facility] Other 06-26-2023 Evaluation note* Encounter Date Diagnosis Assessment Notes Treatment Notes Treatment Clinical Notes Oct, ADD (attention deficit disorder) without hyperactivity (ICD-10 - F98.8) [facility] Other 05-26-2023 Evaluation note* Encounter Date Diagnosis Assessment Notes Treatment Notes Treatment Clinical Notes September, Wellness examination (ICD-10 - Z00.00) Healthy diet and exercise. Reviewed age-appropriate preventive testing recommended. September, ADD (attention deficit disorder) without hyperactivity (ICD-10 - F98.8) Keep consistent day/night routine. Healthy diet and exercise No change in treatment but discussed alternatives September, Other obesity due to excess calories (ICD-10 - E66.09) This patient has been instructed on a low-fat, high-fiber diet. They are instructed to reduce calories, portion sizes and snacks. It is recommended that they exercise for 30 minutes, 3-5 times weekly. September, Body mass index [BMI] 30.0-30.9, adult (ICD-10 - Z68.30) September, Screening mammogram for breast cancer (ICD-10 - Z12.31) [facility] Other 04-13-2023 Evaluation note* Encounter Date Diagnosis Assessment Notes Treatment Notes Treatment Clinical Notes Aug, ADD (attention deficit disorder) without hyperactivity (ICD-10 - F98.8) [facility] Other 03-27-2023 Evaluation note* Encounter Date Diagnosis Assessment Notes Treatment Notes Treatment Clinical Notes Jul, Sore throat (ICD-10 - J02.9) [facility] Other 03-24-2023 Evaluation note* Encounter Date Diagnosis Assessment Notes Treatment Notes Treatment Clinical Notes Jul, Acute bronchitis due to other specified organisms (ICD-10 - J20.8) Instructed to use Robitussin or Mucinex for cough, saline or Flonase NS for congestion, Tylenol for pain and fever. Jul, Acute midline thoracic back pain (ICD-10 - M54.6) Heat, ice and Tylenol. [facility] Other 02-09-2023 Evaluation note* Encounter Date Diagnosis Assessment Notes Treatment Notes Treatment Clinical Notes Jun, ADD (attention deficit disorder) without hyperactivity (ICD-10 - F98.8) [facility] Other 02-07-2023 Evaluation note* Encounter Date Diagnosis Assessment Notes Treatment Notes Treatment Clinical Notes Jun, ADD (attention deficit disorder) without hyperactivity (ICD-10 - F98.8) [facility] Other 02-06-2023 Evaluation note* Encounter Date Diagnosis Assessment Notes Treatment Notes Treatment Clinical Notes Jun, ADD (attention deficit disorder) without hyperactivity (ICD-10 - F98.8) [facility] Other 01-13-2023 Evaluation note* Encounter Date Diagnosis Assessment Notes Treatment Notes Treatment Clinical Notes May, ADD (attention deficit disorder) without hyperactivity (ICD-10 - F98.8) She is tolerating treatment w/o ADR and w/ therapeutic benefit. She is requesting an increased dose, working 2 jobs. Finish present prescription and call for refill May, ANA (generalized anxiety disorder) (ICD-10 - F41.1) Healthy diet, avoid sweets, exercise and keep active May, Seborrheic keratosis (ICD-10 - L82.1) Since on face, would recommend referral to Dermatology [facility] Other 04-20-2022 Evaluation note* Encounter Date Diagnosis Assessment Notes Treatment Notes Treatment Clinical Notes Aug, Lumbar disc herniation (ICD-10 - M51.26) Aug, DDD (degenerative disc disease), lumbosacral (ICD-10 - M51.37) My feeling is the patient would be most benefit with at least continued conservative treatment and exercise program. I would like her to be evaluated by pain management for possible L5 steroid injection. A referral will be sent. If she has persistent symptoms she would be a good candidate for simple discectomy. [facility] Other 11-29-2021 NoteHOME SLEEP STUDY Ordering Physician: Dr. Jewell Procedure Date: 04-03-21 CLINICAL HISTORY: This is a 40 year-old female who has a body mass index of 27. 5, who was referred for a home sleep study due to insomnia and daytime hypersomnia. RECORDING TIME: The total recording time was 5 hours and 33 minutes, total monitoring time was 4 hours and 29 minutes. COMPREHENSIVE VENTILATORY MONITORING: The patient had no apneas and 9 hypopneas. This led to an apnea/hypopnea index of 2 per hour. The average oxygenation while awake was 93% with a minimum oxygen saturation down to 90%. PULSE DATA: The average pulse rate was 77 bpm, maximum pulse rate was 121 bpm and minimum pulse rate was 59 bpm. SNORING DATA: The patient had 61 snoring occurrences. IMPRESSION: 1. This patient does not meet criteria for an obstructive sleep apnea or other sleep disorder breathing syndrome. 2. The patient may benefit from education on proper sleep hygiene including adequate hours of sleep and proper scheduling. 3. This patient would benefit from treatment of any other coexisting medical condition including obesity, insomnia, anxiety or depression. 4. Please correlate clinically.[facility] noteNo InformationNort [employer] Other History general Narrative - Reported* Type Description Date Surgical History D&C Surgical History hysterectomy Surgical History bladder surgery Hospitalization History child Hospitalization History See Above [place] Other History general Narrative - Reported* Type Description Date Medical History ADD (attention defic it disorder) without hyperactivity Medical History ANA (generalized anxiety disorde r) Medical History Wart of face Medical History Idiopathic insomnia Medical History Lumbar disc herniation Medical History Nausea Medical History Vaginal dryness, menopausal Medical History Stress Medical History Urethral syndrome Medical History 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 Medical History Pain in female pelvis Medical History Dysmenorrhea Medical History Abdominal pain Surgical History D&C Surgical History hysterectomy 04/2019 Surgical History bladder surgery Surgical History CERVICAL CONIZATION 2004 Surgical History CYSTOSCOPY Surgical History TUBAL LIGATION Surgical History ABLATION Hospitalization History child Hospitalization History See Above [place] Other Reason for visit NarrativeReferral update - pain managementNortWilkes[facility] [employer] Other Summary Purpose Family History No Family History Records FoundNo Family History Records Found Advance Directives No Advanced Directives Records FoundNo Advanced Directives Records Found Reason for Referral Reason refer to Dr. Cristy joyce for left L5 injection Diagnosis 1 Lumbar disc herniati on (M51.26) Referral Organization [facility] urosurgery Referring Provider First Name Nolan Referring Provider Last Name Brett Referring Provider Specialty Neurosurger y Referred Organization [facility] Pain Managemen t Referred Provider Sim Sewell Referred Address [address] [place] [id number] Referred Provider Specialty Pain Medicin e Referral Priority Routine General Notes Flo, Glenna M 022 02:57:04 PM >Received today and sent P2P Additional Source Comments INFORMATION SOURCE (unrecogn ized section and content) DATE CREATED AUTHOR 04/14/2018 [facility] DATE CREATED AUTHOR AUTHOR'S ORGANIZ ATION 03/17/2022 [facility] REASON FOR VISIT (unrecogniz ed section and content) Referred by Dr. Viet Noland in w [employer] MONTH FOLLOW UP MBprescription refillMedication ChangeMedicationCongested, Fever, Headache [phone] RefillRefillRefillRefillNo InformationVyvanse genericREFILLwELLNESS6 monthlab/mamm resultsRefillPharmacy Change FOR RECORDS PERTAINING TO PATIENTS WHO ARE OR HAVE BEEN ENROLLED IN A CHEMICAL DEPENDENCY/SUBSTANCEABUSE PROGRAM, SOME INFORMATION MAY BE OMITTED. This clinical summary was aggregated from multiple sources. Caution should be exercised in using it in the provision of clinical care. This summary normalizes information from multiple sources, and as a consequence, information in this document may materially change the coding, format and clinical context of patient data. In addition, data may be omitted in some cases. CLINICAL DECISIONS SHOULD BE BASED ON THE PRIMARY CLINICAL RECORDS. [facility] [employer] [facility]. provides no warranty or guarantee of the accuracy or completeness of information in this document.
[2023-12-23 10:32] LABS: Basophils Absolute Auto 0.1 10^3/uL (0.0-0.1); Basophils Percent Auto 1.3 % (0.2-2.0); Eosinophils Absolute Auto 0.1 10^3/uL (0.0-0.7); Eosinophils Percent Auto 2.1 % (0.9-7.0); Hematocrit 39.6 % (36.0-48.0); Hemoglobin 13.3 g/dL (12.0-16.0); Immature Granulocytes Abs Auto 0.01 10^3/uL (0.00-0.03); Immature Granulocytes Pct Auto 0.2 % (0.0-0.5); Lymphocytes Absolute Auto 2.6 10^3/uL (1.2-3.8); Lymphocytes Percent Auto 40.6 % (20.5-60.0); Mean Corpuscular HGB Conc 33.6 g/dL (29.9-35.2); Mean Corpuscular Hemoglobin 29.4 pg (26.7-34.0); Mean Corpuscular Volume 87.4 fL (81.0-99.0); Mean Platelet Volume 9.1 fL (9.5-13.5); Monocytes Absolute Auto 0.4 10^3/uL (0.3-0.8); Monocytes Percent Auto 6.2 % (1.7-12.0); Neutrophils Absolute Auto 3.1 10^3/uL (1.4-6.5); Neutrophils Percent Auto 49.6 % (43.0-75.0); Platelet Count 319 10^3/uL (150-450); Red Blood Count 4.53 10^6/uL (4.20-5.40); Red Cell Distribution Width 12.3 % (11.0-15.0); White Blood Count 6.3 10^3/uL (4.0-11.0)
[2023-12-23 11:11] LABS: Estimated Average Glucose 103 mg/dL; Glycohemoglobin A1C 5.2 % (4.5-6.2)
[2023-12-23 12:30] LABS: Alanine Aminotransferase 23 U/L (14-59); Albumin Globulin Ratio 1.1; Albumin Level 3.9 g/dL (3.4-5.0); Alkaline Phosphatase 98 U/L (46-116); Anion Gap 12.9; Aspartate Amino Transferase 15 U/L (15-37); BUN Creatinine Ratio 13.6; Bilirubin Total 0.6 mg/dL (0.2-1.0); Calcium 9.6 mg/dL (8.5-10.1); Carbon Dioxide 27.7 mmol/L (21.0-32.0); Chloride 104 mmol/L (98-107); Chol HDL Ratio 3.2; Cholesterol 183 mg/dL (<=200); Estimated GFR (African America >60 (>=60); Estimated GFR (Non-African Ame >60 (>=60); Globulin 3.4 g/dL; Glucose 92 mg/dL (74-106); HDL Cholesterol 57 mg/dL (40-60); LDL Cholesterol Calculated 105.6 mg/dL; Potassium 3.6 mmol/L (3.5-5.1); Sodium 141 mmol/L (136-145); Total Protein 7.3 g/dL (6.4-8.2); Triglycerides 102 mg/dL (<=150); VLDL CHOLESTEROL 20.4 mg/dL
== END 2023-12-23 09:56 | disposition home or self-care (01) ==
LOC: LAB 09:55
PROVIDERS: PCP Internal Medicine; Visit Provider Internal Medicine
DX: Z00.00 Encounter for general adult medical examination without abnormal findings (principal)
CPT/HCPCS: 80053; 80061; 83036; 84443; 85025